=== PATIENT | female | born 1950 | race Caucasian/White ===

== ENCOUNTER 2024-06-20 19:29 | Emergency (ER) | payer MEDICARE, SELFPAY ==
[2024-06-20 19:31] VITALS: BP 110/57; PULSE 62; RESP 18; TEMP 36.1; O2SAT 97; BMI 47.5
--- NOTE | 2024-06-20 19:35 | DI.RAD.S_ITS ---
PROCEDURE: XR KNEE LT 3V INDICATIONS: fall, twisted knee TECHNIQUE: 3 views of the knee were acquired. COMPARISON: None. FINDINGS: Bones: Subtle irregularity radiolucency and cortical irregularity involving lateral tibial plateau is seen concerning for lateral tibial plateau fracture. No other fracture or dislocation. No patellar subluxation. No suspicious bony lesions. Soft tissues: Large lipohemarthrosis is seen. No suspicious soft tissue calcifications. IMPRESSION: Finding is suggestive of minimally depressed lateral tibial plateau fracture with large lipohemarthrosis. Dictated by: Kelton Saucedo M.D. on 06/20/2024 at 20:16 Approved by: Kelton Saucedo M.D. on 06/20/2024 at 20:17
--- NOTE | 2024-06-20 20:26 | ED_ITS ---
HPI - Fall General Chief Complaint: Fall Stated Complaint: Fell of ladder, back px, pain causing nausea Time Seen by Provider: 06/20/24 19:51 Source: patient and family Mode of arrival: Wheelchair History of Present Illness HPI Narrative: Patient is a 74-year-old female who arrives to the emergency department for evaluation of injuries that she sustained when she fell backwards off of a ladder. She was approximately 2 ft off the ground. He was states that she leaned back. She fell backwards. Landing on her back and twisting her left knee. She states she felt a cracking sound on her left knee. Did not hit her head. No loss of consciousness. Does not on anticoagulation. No upper extremity injuries. Related Data Home Medications Medication Instructions Recorded Confirmed cetirizine 10 mg capsule (All Day 10 mg PO DAILY PRN 10/22/22 08/28/23 Allergy (cetirizine)) Previous Rx's Medication Instructions Recorded amlodipine 10 mg tablet 10 mg PO DAILY #90 tabs 08/28/23 bupropion HCl 300 mg 24 hr tablet, 300 mg PO QAM #90 tabs 08/28/23 extended release (Wellbutrin XL) fenofibrate nanocrystallized 48 mg 48 mg PO DAILY #90 tabs 08/28/23 tablet lisinopril 20 mg tablet 20 mg PO DAILY #90 tabs 08/28/23 rosuvastatin 10 mg tablet 10 mg PO DAILY #90 tabs 08/28/23 hydrocodone 5 mg-acetaminophen 325 1 tab PO Q4-6H PRN pain #20 tabs 06/20/24 mg tablet Allergies Allergy/AdvReac Type Severity Reaction Status Date / Time Penicillins AdvReac Unknown Rash Verified 06/20/24 19:31 Review of Systems Review of Systems Narrative: See HPI Patient History Medical History Encounter for subsequent annual wellness visit (AWV) in [employer] patient Caregiver stress Morbid obesity Hyperlipidemia Benign essential HTN Social History Smoking Status: Former smoker Smoking Status: Former smoker alcohol intake frequency: holidays/special occasions only Substance Use Type: marijuana Exam Initial Vital Signs Initial Vital Signs: Vital Signs Temperature 97 F L 06/20/24 19:31 Pulse Rate 62 06/20/24 19:31 Respiratory Rate 18 06/20/24 19:31 Blood Pressure 110/57 L 06/20/24 19:31 Pulse Oximetry 97 06/20/24 19:31 Oxygen Delivery Method Room Air 06/20/24 19:31 Const General: No ill appearing HENMT Head: normal to inspection and normocephalic Resp Effort & Inspection: normal respiratory effort Cardio Rate: regular rate GI Inspection: normal to inspection and non-distended Back/Spine/Pelvis Cervical Spine: No cervical spinal tenderness Thoracic/Lumbar Spine: lumbar spinal tenderness Neuro General: patient alert, patient awake and patient oriented x3 Extrem Other: Right lower extremity and bilateral upper extremities are unremarkable. Pelvis is stable. Left hip is unremarkable. Tenderness to palpation on the lateral aspect of the knee. Unable to put any pressure on the left leg. Unable to bend the left knee secondary to pain. Does have general discomfort of the left ankle as well. Procedures Orthopedic Splinting/Casting Injury #1: Side: left Lower Extremity Injury Location: knee Lower Extremity Immobilizer: knee immobilizer Post splinting neuro exam: no change Post splinting vascular exam: no change Placed by: Nursing Course Orders Ordered: ED Orders 06/20/24 19:35 XR knee LT 3V Stat 06/20/24 20:27 XR lumbar spine 2-3V Stat 06/20/24 21:14 XR ankle LT min 3V Stat 06/20/24 21:59 Consult to Orthopedic Surgery Stat Discontinued Medications Hydrocodone Bitart/Acetaminophen (Hydrocodone/Acet 5/325 Prepack) 1 bottle MISC DIRECTED ONE Stop: 06/20/24 22:00 Last Admin: 06/20/24 22:30 Dose: 1 bottle Documented By: RENEE Hydromorphone HCl (Hydromorphone 1 Mg Inj) 1 mg IM NOW ONE Stop: 06/20/24 20:28 Last Admin: 06/20/24 20:34 Dose: 1 mg Documented By: KRISTA Ondansetron HCl (Ondansetron 4 Mg Odt) 4 mg SL NOW ONE Stop: 06/20/24 20:30 Last Admin: 06/20/24 20:34 Dose: 4 mg Documented By: KRISTA Vital Signs Vital signs: Vital Signs - 8 hr 06/20/24 19:31 06/20/24 20:57 06/20/24 21:00 Temperature 97 F L Pulse Rate 62 75 72 Respiratory Rate 18 Blood Pressure 110/57 L Pulse Oximetry 97 97 95 Oxygen Delivery Method Room Air 06/20/24 21:30 06/20/24 22:29 Temperature Pulse Rate 73 76 Respiratory Rate 16 16 Blood Pressure 129/65 Pulse Oximetry 94 96 Oxygen Delivery Method Room Air Room Air MDM - Fall Imaging Data Extremity x-ray #1: Radiologist's Impression: PROCEDURE: XR KNEE LT 3V INDICATIONS: fall, twisted knee TECHNIQUE: 3 views of the knee were acquired. COMPARISON: None. FINDINGS: Bones: Subtle irregularity radiolucency and cortical irregularity involving lateral tibial plateau is seen concerning for lateral tibial plateau fracture. No other fracture or dislocation. No patellar subluxation. No suspicious bony lesions. Soft tissues: Large lipohemarthrosis is seen. No suspicious soft tissue calcifications. IMPRESSION: Finding is suggestive of minimally depressed lateral tibial plateau fracture with large lipohemarthrosis. Lumbar spine x-ray: Radiologist's Impression: PROCEDURE: XR LUMBAR SPINE 2-3V INDICATIONS: LBP after fall TECHNIQUE: 3 views of the lumbar spine were acquired. COMPARISON: None. FINDINGS: Bones: 5 [id number] vertebrae are present. There is normal bony alignment. No definite vertebral body compression deformities seen. No suspicious bony lesions. Diffusely decreased osseous mineralizationThere is multilevel facet arthropathy, worse at L4-5 and L5-S1. Mild multilevel disc height loss with degenerative endplate changes and spurring is present. Soft tissues: Overlying bowel gas pattern is normal. No suspicious soft tissue calcifications. IMPRESSION: Multilevel degenerative changes of the lumbar spine. No definite vertebral body compression deformities seen Extremity x-ray #2: Radiologist's Impression: PROCEDURE: XR ANKLE LT MIN 3V INDICATIONS: pain after fall TECHNIQUE: 3 views of the ankle were acquired. COMPARISON: None. FINDINGS: Bones: No fractures or dislocations. Ankle mortise is normally aligned. No suspicious bony lesions. Soft tissues: No tibiotalar joint effusion. Achilles tendon appears normal. IMPRESSION: No acute osseous abnormality. If pain persists with conservative management, consider repeat x-ray in 10-14 days or cross-sectional imaging. [facility] Narrative Medical decision making narrative: Patient has an isolated left lateral tibial plateau fracture. The rest of her x-rays of her lower back and left ankle show no acute fractures. She did not hit her head. No loss of consciousness. No neck pain. I did discuss the case with Dr. Rios on-call for Orthopedic surgery who recommended knee immobilizer, nonweightbearing and follow-up this week in clinic. Discussed this with the patient. Discussed return precautions and follow-up instructions. She expressed understanding and agreement with plan. Discharge Plan Departure Patient Disposition: Home Clinical Impression: Fracture of left tibial plateau Instructions: How to Use Crutches, How to Use a Knee Immobilizer, DI for Tibial Plateau Fracture Activity Restrictions/Additional Instructions: You should use the crutches at home and not put any weight on your left leg. You do need follow-up with orthopedic surgery you can contact them with the number provided below tomorrow for a follow-up appointment. Take the pain medication as needed. Return to the emergency department for new symptoms. Prescriptions: New hydrocodone-acetaminophen 5-325 mg tablet 1 tab PO Q4-6H PRN (Reason: pain) Qty: 20 0RF No Action amlodipine 10 mg tablet 10 mg PO DAILY Qty: 90 3RF fenofibrate nanocrystallized 48 mg tablet 48 mg PO DAILY Qty: 90 3RF lisinopril 20 mg tablet 20 mg PO DAILY Qty: 90 3RF rosuvastatin 10 mg tablet 10 mg PO DAILY Qty: 90 3RF bupropion HCl [Wellbutrin XL] 300 mg tablet extended release 24 hr 300 mg PO QAM Qty: 90 3RF All Day Allergy (cetirizine) 10 mg capsule 10 mg PO DAILY PRN Referrals: Jude Rios MD [Physician] - Bridget Wooten DO [Primary Care Provider] - Stand Alone Forms: Patient Portal/API
--- NOTE | 2024-06-20 20:27 | DI.RAD.S_ITS ---
PROCEDURE: XR LUMBAR SPINE 2-3V INDICATIONS: LBP after fall TECHNIQUE: 3 views of the lumbar spine were acquired. COMPARISON: None. FINDINGS: Bones: 5 [id number] vertebrae are present. There is normal bony alignment. No definite vertebral body compression deformities seen. No suspicious bony lesions. Diffusely decreased osseous mineralizationThere is multilevel facet arthropathy, worse at L4-5 and L5-S1. Mild multilevel disc height loss with degenerative endplate changes and spurring is present. Soft tissues: Overlying bowel gas pattern is normal. No suspicious soft tissue calcifications. IMPRESSION: Multilevel degenerative changes of the lumbar spine. No definite vertebral body compression deformities seen Dictated by: Marino Padilla M.D. on 06/20/2024 at 21:47 Approved by: Marino Padilla M.D. on 06/20/2024 at 21:50
[2024-06-20] MEDS: ONDANSETRON 4 MG ODT SL (20:34)
[2024-06-20] MEDS: HYDROMORPHONE 1 MG INJ IM (20:34)
[2024-06-20 20:57] VITALS: PULSE 75; O2SAT 97
[2024-06-20 21:00] VITALS: PULSE 72; O2SAT 95
--- NOTE | 2024-06-20 21:14 | DI.RAD.S_ITS ---
PROCEDURE: XR ANKLE LT MIN 3V INDICATIONS: pain after fall TECHNIQUE: 3 views of the ankle were acquired. COMPARISON: None. FINDINGS: Bones: No fractures or dislocations. Ankle mortise is normally aligned. No suspicious bony lesions. Soft tissues: No tibiotalar joint effusion. Achilles tendon appears normal. IMPRESSION: No acute osseous abnormality. If pain persists with conservative management, consider repeat x-ray in 10-14 days or cross-sectional imaging. Dictated by: Marino Padilla M.D. on 06/20/2024 at 21:47 Approved by: Marino Padilla M.D. on 06/20/2024 at 21:47
[2024-06-20 21:30] VITALS: PULSE 73; RESP 16; O2SAT 94
[2024-06-20 22:29] VITALS: BP 129/65; PULSE 76; RESP 16; O2SAT 96
[2024-06-20] MEDS: HYDROCODONE/ACET 5/325 PREPACK 1 BOTTLE MISC (22:30)
== END 2024-06-20 22:45 | disposition home or self-care (01) ==
PROVIDERS: Emergency Provider Emergency Medicine; PCP Family Medicine
DX: S82.142A Displaced bicondylar fracture of left tibia, initial encounter for closed fracture (principal); M54.50 Low back pain, unspecified; W11.XXXA Fall on and from ladder, initial encounter
CPT/HCPCS: 72100; 73562; 73610; 96372; 99283; 99284; J1171